=== PATIENT | male | born 1980 | race Caucasian/White ===

== ENCOUNTER 2016-05-18 23:10 | Emergency (ER) | payer SELFPAY ==
[~2016-05-18] VITALS: Ht 190.5 cm; Wt 98.0 kg
--- OUTSIDE RECORDS SUMMARY | 2016-05-18 23:17 | XMS REPORT | Continuity of Care Document ---
Author Author [facility] Organization [facility] Address Unknown Phone Unavailable Allergies Active Description Code Type Severity Reaction Onset Reported/Identified Relationship to Patient Clinical Status Yes No Known Drug Intolerances No Known Drug Intolerances Drug Allergy Unknown N/A 09/07/2006 Yes NO KNOW CONTRAST MEDIA ALLERGY NO KNOW CONTRAST MEDIA ALLERGY Drug Allergy Unknown N/A 2006 Yes No Known Drug Allergies No Known Drug Allergies Drug Allergy Unknown N/A 09/28/2006 Yes No Known Food Allergies No Known Food Allergies Drug Allergy Unknown N/A 09/28/2006 Yes NO KNOWN LATEX ALLERGY/SENSITI NO KNOWN LATEX ALLERGY/SENSITI Drug Allergy Unknown N/A 2006 Yes No Known Drug Allergies No Known Drug Allergies Drug Allergy Mild NONE 01/21/2015 Medications Problems Procedures Results Encounters ACCT No. Visit Date/Time Discharge Status Pt. Type Provider Facility Loc./Unit Complaint [id number] 01/21/2015 09:11:00 2014 14:20:00 DIS Outpatient Cookie BUI, Jean Paul Saez [facility] E.OR
[2016-05-18 23:20] VITALS: TEMP 98.1; Ht 190.5 cm; Wt 98.0 kg
--- NOTE | 2016-05-18 23:45 | NUR ---
PROVIDER DR TSAI IN ROOM TO SEE PT
--- NOTE | 2016-05-18 23:48 | ERPDOC ---
Departure Disposition Decision Date: May 19, 2016 Disposition Decision Time: 01:12 Disposition: 01 DISCHARGED HOME, SELF-CARE Impression Impression Impression: Primary Impression: Right ankle sprain Severity: Moderate Condition: Stable Seen By: Physician only Patient Instructions: Ankle Sprain (ED) Problems/Meds/Labs Reviewed?: Yes Medications reviewed and manag: Yes Additional Instructions: [place] 5 mg. One tablet every 6 hours as needed for pain. Walking boot for comfort. Please follow-up with her primary care provider or orthopedics. Note for work tonight. Follow up care ordered?: Yes Mental Status: Alert, Oriented HPI General Chief Complaint: Lower Extremity Injury Stated Complaint: ROLLED FOOT TWO DAYS GO Time Seen by Provider: 23:46 HPI Foot/Ankle Initial Comments 35-year-old male with right ankle pain. Patient has an injury from when he was younger, to the right ankle, which leaves it flexible and rolls easily. He rolled about 2 days ago, did not think much of it, but tonight the pain at work became quite severe. He does have chronic swelling of the ankle because of the previous injury. He did not see a physician about the recent ankle, has not taken any medications for this yet. Allergies: Coded Allergies: No Known Allergies (Unverified , 05/18/16) Past History Past Medical History Pt denies signifigant PMH Surgical History Denies Surgeries Record Review Pertinent history updated: Yes Review of Systems Musculoskeletal General: see HPI All other Systems All Other Systems: Reviewed and Negative Exam Fastrak Foot/Ankle Comments Right ankle swollen, no ecchymosis. Swelling is both medial and lateral. Distal pedal pulses equal bilateral. Neurologic RN Documented GCS Eye Opening: Verbal: Motor: Total: Differential Diagnoses Considering: Contusion, Dislocation, Fracture, Sprain, Strain Progress Results/Orders Orders Procedure Category Date Status Time Ankle Right 3 View RAD 05/18/16 Taken 23:48 Progress Progress Right ankle sprain. 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 I see no acute injury to the bone. He comments that he is always had a piece of bone hanging off since an old injury as well. Patient be placed in a walking boot for comfort and to allow radiology to over read the film in case this is an acute fracture. Patient given note for work. And [place] ED pack. KRISTAN TSAI MD May 18, 2016 23:48
--- NOTE | 2016-05-18 23:55 | NUR ---
TO XRAY VIA W/C
[2016-05-18] MEDS ORDERED: NO KNOWN MEDS (23:58)
--- NOTE | 2016-05-19 00:05 | NUR ---
RETURN FROM XRAY
[2016-05-19] MEDS ORDERED: HYDROCODONE/APAP 5/325 (PrePack) SENT HOME ONE (01:15)
[2016-05-19 01:50] VITALS: BP 132/80; PULSE 61; RESP 16; O2SAT 99
--- NOTE | 2016-05-19 01:50 | NUR ---
DEPART PT IS DISCHARGED AT THIS TIME, INSTRUCTIONS ARE REVIEWED AND UNDERSTANDING IS VOICED. PT LEAVES AMBULATORY WEARING WALKING BOOT AT THIS TIME.
--- NOTE | 2016-05-19 07:56 | DI ---
Indication: ITS.REASON: trauma 2 days ago, pain PROCEDURE: ANKLE RIGHT 3 VIEW: Encounter: Initial Comparison: None Findings: There is no acute fracture, dislocation or malalignment identified. 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 Impression: No acute osseous abnormality. .
[2016-05-20] MEDS ORDERED: HYDR-4246 PO (15:42)
[2016-05-20] MEDS ORDERED: IBUP-1724 PO (15:42)
== END 2016-05-19 01:50 | disposition home or self-care (01) ==
LOC: ED 23:10
DX: S93.401A Sprain of unspecified ligament of right ankle, initial encounter (principal); X50.9XXA Other and unspecified overexertion or strenuous movements or postures, initial encounter; Y93.9 Activity, unspecified; Y92.9 Unspecified place or not applicable; Y99.8 Other external cause status

== ENCOUNTER 2016-05-20 15:20 | Emergency (ER) | payer SELFPAY ==
[~2016-05-20] VITALS: Ht 190.5 cm; Wt 97.4 kg
[2016-05-20 15:20] VITALS: Ht 190.5 cm; Wt 97.4 kg
[~2016-05-20 15:20] MED LIST: NO KNOWN MEDS
--- OUTSIDE RECORDS SUMMARY | 2016-05-20 15:24 | XMS REPORT | Continuity of Care Document ---
Author Author [facility] Organization [facility] Address Unknown Phone Unavailable Support Name Relationship Address Phone KRISTAN TSAI MD Caregiver [address] [place] [phone] Unavailable RADHA IVEY Next Of Kin [address] [place] [address] Insurance Providers Guarantor Ronny Mayorga Address [address] [place] [phone] Email DENIED/NO PORTAL Payer [facility] Policy Number [id number] Subscriber's Name Ronny Mayorga Relationship 18 Self Effective Date 16 Expiration Date 16 Advance Directives Directive Response Recorded Date/Time Advanced Directives Type None 02/03/16 11:54pm Chief Complaint and Reason for Visit Chief Complaint Upper Extremity Pain Reason for Visit Olecranon bursitis of right elbow Problems Active Problems Medical Problem Onset Date Status Olecranon bursitis of right elbow Unknown Acute Medications Current Home Medications Medication Dose Units Route Directions Days Qty Instructions Start Date No Current Home Meds 02/04/16 Social History Social History Problem Response Recorded Date/Time Onset Date Status Hx Substance Use No 02/04/2016 12:00am Not Applicable Not Applicable Hx Alcohol Use No 02/04/2016 12:00am Not Applicable Not Applicable Query Response Start Date Stop Date Smoking Status Current every day smoker Hospital Discharge Instructions No hospital discharge instructions. Plan of Care Discharge Date 02/04/16 1:04am Disposition 01 DISCHARGED HOME, SELF-CARE Condition at Discharge Stable Instructions/Education Provided DI for Elbow Bursitis Prescriptions See Medication Section Additional Instructions/Education Keep elbow wrapped and rested for one week. If swelling not resolved, you will need to schedule with a Primary Care Physician. Care Plan and Goals Physician Care Plan Problem:olecrenon bursitis Goal: Follow up with primary care provider Instructions: Take medications and follow care plan as discussed/written Functional Status No functional status results. Allergies, Adverse Reactions, Alerts Allergen Type Severity Reaction Status Last Updated NKDA Allergy Unknown Active 02/04/16 Immunizations No immunization records. Vital Signs Acute Vital Signs Vital Response Date/Time Temperature (Fahrenheit) 97.9 deg F (96.8 - 99.1) 02/04/2016 1:04am Temperature (Calculated Celsius) 36.10963 degrees C (36.0 - 37.3) 02/04/2016 1:04am Pulse Rate (adult) 90 bpm (60 - 100) 02/04/2016 1:04am Respiratory Rate 20 breaths/min (10 - 20) 02/04/2016 1:04am O2 Sat by Pulse Oximetry 96 % (90 - 100) 02/04/2016 1:04am Blood Pressure 131/78 mm Hg 02/04/2016 1:04am Height (Feet) 6 feet 02/03/2016 11:54pm Height (Inches) 3.00 inches 02/03/2016 11:54pm Weight (Kilograms) 100.600 kg 02/03/2016 11:54pm Body Mass Index (BMI) 27.0 02/03/2016 11:54pm Results No known relevant diagnostic tests, laboratory data and/or discharge summary. Procedures No known history of procedures. Encounters Encounter Location Arrival/Admit Date Discharge/Depart Date Attending Provider Departed Emergency Room [facility] 02/03/16 11:53pm 02/04/16 1: 04am KRISTAN TSAI MD Recent Diagnosis
--- OUTSIDE RECORDS SUMMARY | 2016-05-20 15:24 | XMS REPORT | Continuity of Care Document ---
Author Author [facility] Organization [facility] Address Unknown Phone Unavailable Support Name Relationship Address Phone KRISTAN TSAI MD Caregiver [address] [place] [phone] Unavailable RADHA IVEY Next Of Kin [address] [place] [phone] Insurance Providers Guarantor Ronny Mayorga Address [address] [place] [address] Email DECLINED Payer Self Pay Subscriber's Name Ronny Mayorga Relationship 18 Self Chief Complaint and Reason for Visit Chief Complaint Lower Extremity Injury Reason for Visit Right ankle sprain Problems Past Problems Medical Problem Onset Date Right ankle sprain Unknown Medications Current Home Medications Medication Dose Units Route Directions Days Qty Instructions Start Date No Known Meds 05/18/16 Social History Social History Problem Response Recorded Date/Time Onset Date Status Hx Alcohol Use No 05/18/2016 11:51pm Not Applicable Not Applicable Query Response Start Date Stop Date Smoking Status Unknown if ever smoked Hospital Discharge Instructions No hospital discharge instructions. Plan of Care Discharge Date 05/19/16 1:50am Disposition 01 DISCHARGED HOME, SELF-CARE Condition at Discharge Stable Instructions/Education Provided Ankle Sprain (ED) Prescriptions See Medication Section Additional Instructions/Education [place] 5 mg. One tablet every 6 hours as needed for pain. Walking boot for comfort. Please follow-up with your primary care provider or orthopedics. Note for work tonight. Functional Status No functional status results. Allergies, Adverse Reactions, Alerts No known allergies. Immunizations Query Response on File Recorded Date/Time Tdap Vaccine Hx UNK 05/19/16 1:50am Vital Signs Acute Vital Signs Vital Response Date/Time Temperature (Fahrenheit) 98.1 deg F (96.8 - 99.1) 05/18/2016 11:20pm Temperature (Calculated Celsius) 36.34507 degrees C (36.0 - 37.3) 05/18/2016 11:20pm Pulse Rate (adult) 61 bpm (60 - 100) 05/19/2016 1:50am Respiratory Rate 16 breaths/min (10 - 20) 05/19/2016 1:50am O2 Sat by Pulse Oximetry 99 % (90 - 100) 05/19/2016 1:50am Blood Pressure 132/80 mm Hg 05/19/2016 1:50am Blood Pressure 132/80 mm Hg 05/19/2016 1:50am Height (Feet) 6 feet 05/18/2016 11:20pm Height (Inches) 3.00 inches 05/18/2016 11:20pm Weight (Kilograms) 98.000 kg 05/18/2016 11:20pm Body Mass Index (BMI) 27.0 05/18/2016 11:20pm Results No known relevant diagnostic tests, laboratory data and/or discharge summary. Procedures No known history of procedures. Encounters Encounter Location Arrival/Admit Date Discharge/Depart Date Attending Provider Departed Emergency Room [facility] 05/18/16 11:10pm 05/19/16 1: 50am KRISTAN TSAI MD Recent Diagnosis
--- OUTSIDE RECORDS SUMMARY | 2016-05-20 15:24 | XMS REPORT | Continuity of Care Document ---
Author Author [facility] Organization [facility] Address Unknown Phone Unavailable [...] Status Pt. Type Provider Facility Loc./Unit Complaint [id number] 01/21/2015 09:11:00 2014 14:20:00 DIS Outpatient Cookie BUI, Jean Paul Saez [facility] E.OR
[2016-05-20] MEDS ORDERED: IBUP-1724 PO (15:42)
[2016-05-20] MEDS ORDERED: HYDR-4246 PO (15:42)
--- OUTSIDE RECORDS SUMMARY | 2016-05-20 15:45 | XMS REPORT | Continuity of Care Document ---
Author Author [facility] Organization [facility] Address Unknown Phone Unavailable [...] Status Pt. Type Provider Facility Loc./Unit Complaint [id number] 01/21/2015 09:11:00 2014 14:20:00 DIS Outpatient Cookie BUI, Jean Paul Saez [facility] E[facility]
[2016-05-20] MEDS ORDERED: ONDANSETRON 4mg/2ml INJECTION IV ONE (16:00)
[2016-05-20] MEDS ORDERED: NORMAL SALINE 1,000 ML IV ONE (16:00)
[2016-05-20] MEDS ORDERED: FENTANYL 100mcg/2ml INJECTION IV ONE ×2 (16:00→18:15)
--- NOTE | 2016-05-20 16:00 | NUR ---
U/S IN ROOM AT THIS TIME
--- NOTE | 2016-05-20 16:16 | NUR ---
MEDICATIONS GIVEN PER ORDERS. RATES PAIN /
[2016-05-20 16:23] LABS: BASOPHILS % (AUTO) 0.1 % (0-2); EOSINOPHILS # (AUTO) 0.2 T/MM3 (0-0.5); EOSINOPHILS % (AUTO) 1.3 % (0-4); HCT - HEMATOCRIT 42.5 % (41-53); HGB - HEMOGLOBIN 14.8 GM/DL (13.5-17.5); IMMATURE GRANULOCYTE # (AUTO) 0.02 T/MM3 (0.00-0.03); IMMATURE GRANULOCYTE % (AUTO) 0.1 % (0.0-0.5); LYMPHOCYTES # (AUTO) 1.7 T/MM3 (1-4.8); LYMPHOCYTES % (AUTO) 12.2 % (23-45); MEAN CORPUSCULAR HGB 31.9 UUG (26-34); MEAN CORPUSCULAR HGB CONC(MCHC 34.8 GM/DL (31-37); MEAN CORPUSCULAR VOLUME 91.6 UM3 (80-100); MEAN PLATELET VOLUME 9.8 UM3 (9.4-12.4); MONOCYTES # (AUTO) 0.9 T/MM3 (0-0.8); MONOCYTES % (AUTO) 6.3 % (0-9.0); NEUTROPHILS #(AUTO)-ABSOLUTE 11.3 T/MM3 (1.8-7.7); RED BLOOD COUNT 4.64 M/MM3 (4.50-5.90); WBC - WHITE BLOOD COUNT 14.2 T/MM3 (4.5-11.0)
[2016-05-20 16:31] LABS: LACTATE - LACTIC ACID 1.5 MMOL/L (0.6-2.2)
[2016-05-20 16:33] LABS: ALBUMIN 4.1 G/DL (3.5-5.0); ALBUMIN/GLOBULIN RATIO 1.4 RATIO (1.1-2.2); ALKALINE PHOSPHATASE 60 U/L (38-126); ALT (SGPT) 32 U/L (21-72); ANION GAP 11 MEQ/L (5-15); AST (SGOT) 19 U/L (17-59); BUN/CREATININE RATIO 11 RATIO (6-26); CHLORIDE 107 MEQ/L (98-107); CO2 - CARBON DIOXIDE 27 MEQ/L (22-30); CREATININE 0.7 MG/DL (0.8-1.5); GLOMERULAR FILTRATION RATE 128; GLUCOSE 106 MG/DL (75-110); POTASSIUM 3.2 MEQ/L (3.6-5); SODIUM 145 MEQ/L (134-144)
--- NOTE | 2016-05-20 16:33 | NUR ---
RETURNED FROM RADIOLOGY
--- NOTE | 2016-05-20 16:33 | DI ---
Indication: ITS.REASON: pain, swelling PROCEDURE: US VENOUS DUPLEX, LOWER EXT RT: Encounter: Initial Comparison: None Technique: Color Doppler duplex and grayscale sonographic imaging of the right lower extremity was performed. Findings: There is no evidence for acute deep venous thrombosis in the right thigh. Specifically, serial graded compression was performed from the inguinal ligament to the popliteal bifurcation, on the right thigh, demonstrating appropriate compressibility of the deep venous system. In addition, color and pulsed Doppler demonstrate appropriate spontaneous flow, variation with respiration, and augmentation with calf compression. At the ankle, normal flow is identified in the posterior tibial veins; these vessels are also normal in caliber. Impression: No evidence of acute DVT in the right lower limb. .
--- NOTE | 2016-05-20 16:49 | DI ---
Indication: ITS.REASON: Foot and ankle pain after twisting injury PROCEDURE: FOOT RIGHT 3 VIEWS: Encounter: Initial Comparison: None Findings: There is no acute fracture, dislocation or malalignment identified. Impression: No acute osseous abnormality. .
--- NOTE | 2016-05-20 16:51 | DI ---
Indication: ITS.REASON: Lower leg pain after twisting injury PROCEDURE: TIB-FIB RIGHT 2 VIEW: Encounter: Initial Comparison: None Findings: There is no acute fracture, dislocation or malalignment identified. Impression: No acute osseous abnormality. .
--- NOTE | 2016-05-20 16:51 | DI ---
Indication: ITS.REASON: Foot and ankle pain after twisting injury PROCEDURE: ANKLE RIGHT 3 VIEW: Encounter: Initial Comparison: May 19, 2016 Findings: There is no acute fracture, dislocation or malalignment identified. Old ununited medial malleolar fracture. Impression: No acute osseous abnormality. .
--- NOTE | 2016-05-20 17:03 | ERPDOC ---
Departure Disposition Decision Date: May 20, 2016 Disposition Decision Time: 17:30 Disposition: [address] [facility] Impression Impression Impression: Primary Impression: Acute right ankle pain Severity: Moderate Condition: Improved Seen By: Physician only Problems/Meds/Labs Reviewed?: Yes Medications reviewed and manag: Yes Follow up care ordered?: Yes Mental Status: Alert, Oriented HPI - General Medical General Chief Complaint: Lower Extremity Pain Stated Complaint: PAINFUL RIGHT LEG Time Seen by Provider: 15:34 Source: patient Exam Limitations: no limitations HPI - General Medical Initial Comments 35-year-old male presents to the emergency department with a chief complaint of a painful right lower extremity. Patient was seen and evaluated in the emergency department after twisting his ankle 2 days ago and discharged home. Patient states that his symptoms have continued to gradually increase with pain and swelling. Patient also notes a mild redness overlying the anterior portion of the ankle. Patient denies any other injury. Patient states his pain is sharp. Pain is severe. There is no radiation. Pain increases with ambulation or moving the right lower extremity. Patient denies any injection drug use or heavy alcohol use. Patient denies any cuts or breaks in the skin. Patient was at home when the symptoms began. Symptoms have been persistent in nature with a gradual progression since onset. Occurred At: home Onset: Gradual Allergies: Coded Allergies: No Known Allergies (Unverified , 05/20/16) Past History Past Medical History Pt denies signifigant [facility] Surgical History Denies Surgeries Family History Family History: Negative Social History Smoking Status: Never smoker Substance Use Type: does not use Alcohol Intake: none Review of Systems Constitutional Constitutional: DENIES: chills, fever Eyes General: DENIES: erythema, exudate Lids/Accessories: DENIES: erythema, swelling Vision: DENIES: acuity, blurring ENMT Ears: DENIES: drainage, pain Hearing: DENIES: hearing loss Balance: DENIES: ataxia, falling to one side Sinuses: DENIES: congestion, pain Nose: DENIES: nosebleeds, pain Mouth/Throat: DENIES: painful swallowing, sore throat Teeth: DENIES: pain Jaw: DENIES: pain Cardiovascular Cardiac: DENIES: chest pain, dyspnea on exertion Rhythm/Rate: DENIES: irregular beat, palpitations Vascular: DENIES: pedal edema, unilateral swelling Pulmonary Respiratory: DENIES: cough, dyspnea, pleuritic chest pain, sputum GI Upper Abdomen: DENIES: nausea, pain, vomiting Lower Abdomen: DENIES: diarrhea, pain General: DENIES: dysuria, pain Musculoskeletal General: joint pain, tenderness Integumentary Skin: DENIES: itching, rash Neurological General: DENIES: headache, numbness, weakness Psychiatric Psychiatric: DENIES: emotional instability, suicidal ideation/attempt Endocrine Endocrine: DENIES: polydipsia, polyphagia Hematologic/Lymphatic Hematologic/Lymphatic: DENIES: frequent nosebleeds, lymphadenopathy Allergic/Immunological Allergic/Immunoligical: DENIES: frequent infections, hives Physical Exam General General Nourishment: well nourished, well developed, appears stated age, no acute distress, adult General Body Habitus: well groomed Vitals and Pain First Documented Vital Signs Date Time Temp Pulse Resp B/P Pulse Ox O2 Delivery O2 Flow Rate FiO2 05/20/16 15:20 98.1 88 20 145/79 100 Room Air Weight: Kilograms: 97.400 Height (feet): 6 Height (inches): 3.00 Triage Pain Scale: RN VS reviewed by Provider: Yes Normal Exams: Head: Normocephalic w/o trauma Eyes: Pupils are PERRLA w/ EOMI, No scleral icterus, irritation, or foreign bodies noted ENMT: No facial trauma, nasal exudates, pharyngeal erythema, or exudates are noted Dental: No fractured, loose, or missing teeth noted Neck: Full range of motion, without adenopathy, JVD, bruits or thyromegaly Chest/Resp: Clear all banrey, with good airflow, and symmetry bilaterally CV: Regular rate and rhythm, without murmur or gallop, Pulses 2+ all extremities, capillary refill, <2 seconds all ext., no pedal edema noted Abdomen: Bowel sounds positive, soft, non-tender, non-distended, no hepatosplenomegaly, masses or bruits noted Lymphatic: No lymphadenopathy, or lymphedema noted Musculoskeletal: or deformity noted Integumentary: No rashes, hives, or bruising noted, hair and nails, without abnormality Neurologic: Patient is alert, and oriented, cranial nerves, motor/sensory/ cerebellar, exams w/o gross deficits, to observation Psychiatric: Patient exhibits, appropriate attention, emotion and affect Musculoskeletal (brief) Comments RLE - diffusely tender to palpation over the ankle. Positive trace edema. Pulses intact. Sensation intact. Capillary refill less than 2. Patient refuses to move the ankle secondary to pain. No calf tenderness. Mild erythema overlying the anterior ankle region. No lymphangitis or abscess. No other tenderness in the right lower extremity. All other extremities are unremarkable. Differential Diagnoses Considering: Other (cellulitis/abscess/septic arthritis/ankle injury) Progress Results/Orders Orders Procedure Category Date Status Time Cbc W/Auto LAB 05/20/16 Complete Diff-Reflex Manual Cmp - Comprehensive LAB 05/20/16 Complete Metabolic C-Reactive Protein - LAB 05/20/16 Complete CRP 15:53 Blood Culture MARGARITA 05/20/16 In Process 15:53 Lactate - Lactic Acid LAB 05/20/16 Complete Procalcitonin LAB 05/20/16 Complete 15:53 Foot Right 3 Views RAD 05/20/16 Resulted 15:53 Ankle Right 3 View RAD 05/20/16 Resulted 15:53 Lactate - Lactic Acid LAB 05/20/16 Logged 20:23 Tib-Fib Right 2 View RAD 05/20/16 Resulted 15:53 Iv Lock (Ed Only) EDM 05/20/16 Transmitted 15:53 Normal Saline (Normal PHA 05/20/16 Complete Saline Iv) 16:00 Fentanyl (Fentanyl) PHA 05/20/16 Complete 16:00 Ondansetron Inj PHA 05/20/16 Complete (Zofran) 16:00 Us Venous Duplex, US 05/20/16 Resulted Lower Ext Rt 15:53 Fentanyl (Fentanyl) PHA 05/20/16 In Process 18:15 Lab Results Laboratory Tests Test 05/20/16 16:11 White Blood Count 14.2T/MM3 Red Blood Count 4.64M/MM3 Hemoglobin 14.8GM/DL Hematocrit 42.5% Mean Corpuscular Volume 91.6UM3 Mean Corpuscular Hemoglobin 31.9UUG Mean Corpuscular Hemoglobin Concent 34.8GM/DL RDW Standard Deviation 40.4FL Platelet Count 204T/MM3 Mean Platelet Volume 9.8UM3 Immature Granulocyte % (Auto) 0.1% Neutrophils (%) (Auto) 80.0% Lymphocytes (%) (Auto) 12.2% Monocytes (%) (Auto) 6.3% Eosinophils (%) (Auto) 1.3% Basophils (%) (Auto) 0.1% Absolute Immature Granulocyte (auto 0.02T/MM3 Absolute Neutrophils (auto) 11.3T/MM3 Absolute Lymphocytes (auto) 1.7T/MM3 Absolute Monocytes (auto) 0.9T/MM3 Absolute Eosinophils (auto) 0.2T/MM3 Absolute Basophils (auto) 0.0T/MM3 Turbidity < 20 Sodium Level 145MEQ/L Potassium Level 3.2MEQ/L Chloride Level 107MEQ/L Carbon Dioxide Level 27MEQ/L Anion Gap 11MEQ/L Blood Urea Nitrogen 8.0MG/DL Creatinine 0.7MG/DL Glomerular Filtration Rate Calc 128 BUN/Creatinine Ratio 11RATIO Glucose Level 106MG/DL Calculated Osmolality 277MOSM/KG Calcium Level 9.0MG/DL Total Bilirubin 2.30MG/DL Icterus Index < 2 Aspartate Amino Transf (AST/SGOT) 19U/L Alanine Aminotransferase (ALT/SGPT) 32U/L Alkaline Phosphatase 60U/L C-Reactive Protein 81.3MG/L Total Protein 7.0G/DL Albumin 4.1G/DL Globulin 2.9G/DL Albumin/Globulin Ratio 1.4RATIO Plasma Lactate 1.5MMOL/L Procalcitonin < 0.05NG/ML Chemistry Specimen Hemolysis < 15 Medications Current ED Medications Sodium Chloride (Normal Saline IV) 1,000 ml @ 999 mls/hr Q1H1M ONCE IV Last administered on 05/20/16 16:15; Start 05/20/16 at 16:00; Stop 05/20/16 at 17:00 ; Status DC Fentanyl (Fentanyl) 50 mcg O ONCE IV Last administered on 05/20/16 16:18; Start 05/20/16 at 16:00; Stop 05/20/16 at 16:01; Status DC Ondansetron HCl (Zofran) 4 mg O ONCE IV Last administered on 05/20/16 16:16; Start 05/20/16 at 16:00; Stop 05/20/16 at 16:01; Status DC Fentanyl (Fentanyl) 50 mcg O ONCE IV ; Start 05/20/16 at 18:15; Stop 05/20/16 at 18:16 Progress Progress Labs/imaging were discussed in detail with the patient and questions are answered. There is concern for potential septic arthritis of the patient's right ankle. Patient is discussed with Dr. Becerril/Levy of orthopedic surgery who are unavailable at this time. Orthopedic coverage is not available. Orthopedics recommendation is to transfer the patient to [facility] for further evaluation and treatment. Patient is discussed with Dr. Josh Fisher of orthopedic surgery who recommends transferring the patient to [facility]. Dr. Fisher recommends holding antibiotic therapy until he has a chance to aspirate the patient's ankle. Dr. Fisher does not want to compromise the patient's aspirate of the ankle for culture and sensitivities. Dr. Fisher will handle antibiotic therapy intravenously once the patient reaches [facility] and has his R ankle aspirated for evaluation of a potential septic joint. Patient is in agreement with the current plan of management. Patient is provided with IV hydration. Patient is given parental narcotic and antiemetic medications intravenously which improved his symptoms. Patient is counseled regarding the risks versus benefit of transfer to [facility] and verbalizes agreement and understanding. Patient is transferred to [facility] without incident in improved condition. Patient will be transferred to rule out a septic arthritis of his right ankle. Xray Xray : Xray: Ankle R (x-ray right foot: Negative. X-ray right tib-fib: Negative) Interpretation: Normal, Interpreted by Me, Reviewed Written Report Ultrasound US : Ultrasound: Venous Doppler Interpretation: Normal, Reviewed Written Report MIKE PALMER DO May 20, 2016 17:03
--- NOTE | 2016-05-20 18:16 | NUR ---
REPORT GIVEN TO CHARGE NURSE AT [facility]
[2016-05-20 18:29] VITALS: BP 140/75; PULSE 69; RESP 20; TEMP 98.1; O2SAT 100
== END 2016-05-20 18:30 | disposition short-term general hospital (02) ==
LOC: ED 15:20
DX: M25.571 Pain in right ankle and joints of right foot (principal); M25.471 Effusion, right ankle; L53.9 Erythematous condition, unspecified
CPT/HCPCS: 36415; 80053; 83605; 84145; 85025; 86140; 87040